=== PATIENT | female | born 1990 | race Caucasian/White ===

== ENCOUNTER 2018-07-11 08:05 | Emergency (ER) | payer OTHER ==
--- NOTE | 2018-07-11 08:19 | PDOC ---
History of Present Illness - General Chief Complaint: Nausea/Vomiting Stated Complaint: NAUSEA,VOMITING Time Seen by Provider: 07/11/18 08:15 - History of Present Illness Initial Comments: 07/11/18 08:18 Patient denies N/V, F,C, CP, SOB, urinary complaints, abdominal pain, diarrhea, constipation, lightheadedness, weakness, sensory changes. PMHx: as noted above ROS: as noted SHx: Allergies: Past History - Past Medical History Allergies/Adverse Reactions: Allergies Allergy/AdvReac Type Severity Reaction Status Date / Time Penicillins Allergy Verified 07/11/18 08:10 Home Medications: Ambulatory Orders 95/Iron Fum/Folic/Dha [ + Dha Combo Pack] 1 each PO DAILY 07/11 COPD: No - Immunization History Immunization Up to Date: Yes - Suicide/Smoking/Psychosocial Hx Smoking History: Former smoker Have you smoked in the past 12 months: No Information on smoking cessation initiated: No Hx Alcohol Use: No Drug/Substance Use Hx: No Review of Systems - Review of Systems Comments:: 07/11/18 08:18 GENERAL/CONSTITUTIONAL: No fever or chills. No weakness. HEAD, EYES, EARS, NOSE AND THROAT: No change in vision. No ear pain or discharge. No sore throat. CARDIOVASCULAR: No chest pain or shortness of breath RESPIRATORY: No cough, wheezing, or hemoptysis. GASTROINTESTINAL: No nausea, vomiting, diarrhea or constipation. GENITOURINARY: No dysuria, frequency, or change in urination. MUSCULOSKELETAL: No joint or muscle swelling or pain. No neck or back pain. SKIN: No rash NEUROLOGIC: No headache, vertigo, loss of consciousness, or change in strength/ sensation. ENDOCRINE: No increased thirst. No abnormal weight change HEMATOLOGIC/LYMPHATIC: No anemia, easy bleeding, or history of blood clots. ALLERGIC/IMMUNOLOGIC: No hives or skin allergy. *Physical Exam - Vital Signs Last Vital Signs Temp Pulse Resp BP Pulse Ox 98.8 F 105 H 18 108/76 99 07/11/18 08:10 07/11/18 08:10 07/11/18 08:10 07/11/18 08:10 07/11/18 08:10 - Physical Exam Comments: 07/11/18 08:18 GENERAL: Awake, alert, and fully oriented, in no acute distress HEAD: No signs of trauma, normocephalic, atraumatic EYES: PERRLA, EOMI, sclera anicteric, conjunctiva clear ENT: Auricles normal inspection, hearing grossly normal, nares patent, oropharynx clear without exudates. Moist mucosa NECK: Normal ROM, supple, no lymphadenopathy, JVD, or masses LUNGS: No distress, speaks full sentences, clear to auscultation bilaterally HEART: Regular rate and rhythm, normal S1 and S2, no murmurs, rubs or gallops, peripheral pulses normal and equal bilaterally. ABDOMEN: Soft, nontender, normoactive bowel sounds. No guarding, no rebound. No masses EXTREMITIES : Normal inspection, Normal range of motion, no edema. No clubbing or cyanosis. NEUROLOGICAL: Cranial nerves II through XII grossly intact. Normal speech, normal gait, no focal sensorimotor deficits SKIN: Warm, Dry, normal turgor, no rashes or lesions noted Moderate Sedation - Procedure Monitoring Vital Signs: Procedure Monitoring Vital Signs Temperature 98.8 F 07/11/18 08:10 Pulse Rate 105 H 07/11/18 08:10 Respiratory Rate 18 07/11/18 08:10 Blood Pressure 108/76 07/11/18 08:10 O2 Sat by Pulse Oximetry (%) 99 07/11/18 08:10 *DC/Admit/Observation/Transfer - Discharge Dispostion Condition at time of disposition: Stable Decision to Admit order: No - Referrals Referrals: Hector Alvarado MD [Primary Care Provider] - - Patient Instructions Printed Discharge Instructions: DI for Nausea -- Adult Additional Instructions: Please return to the emergency department with any new or worsening symptoms or concerns. Please follow up with your primary care physician within 72 hours. - Post Discharge Activity - Attestations Physician Attestion: 07/11/18 08:18 I attest to the information provided in this note.
[2018-07-11] MEDS ORDERED: FAMOTIDINE 20 MG/50 ML IVPB 20 MG/50 ML MG IVPB ONE ×2 (08:30→09:21)
[2018-07-11] MEDS ORDERED: SODIUM CHLORIDE 1,000 ML IV ONE (08:30)
[2018-07-11] MEDS ORDERED: METOCLOPRAMIDE HCL INJECTION 10 MG/2 ML VIAL IVPB ONE (08:30)
[2018-07-11] MEDS ORDERED: METOCLOPRAMIDE HCL INJECTION 10 MG/2 ML VIAL ONE (08:35)
[2018-07-11 08:36] VITALS: BMI 34.3
[2018-07-11 08:43] LABS: BASO % 0.1 % (0-2.0); EOS % 0.3 % (0-4.5); HEMOGLOBIN 14.2 GM/dL (10.7-15.3); LYMPH % 3.3 % (8-40); MCH 31.2 pg (25.7-33.7); MCHC 35.4 g/dl (32.0-36.0); MEAN CELL VOLUME 88.1 fl (80-96); MEAN PLT VOLUME 8.4 fl (7.5-11.1); MONO % 2.6 % (3.8-10.2); NEUT % 93.7 % (42.8-82.8); PLATELET COUNT 252 K/MM3 (134-434); RBC 4.54 M/mm3 (3.60-5.2); RDW 12.8 % (11.6-15.6); WHITE BLOOD COUNT 14.3 K/mm3 (4.0-10.0)
--- NOTE | 2018-07-11 09:08 | PDOC ---
History of Present Illness - General Chief Complaint: Nausea/Vomiting Stated Complaint: NAUSEA,VOMITING Time Seen by Provider: 07/11/18 08:15 History Source: Patient Exam Limitations: No Limitations - History of Present Illness Initial Comments: 07/11/18 09:01 Healthy 27-year-old female with no significant past medical history currently at 10 weeks gestation of thus far uncomplicated presents now with nausea/vomiting/diarrhea since 1 AM. Patient was in her usual state of good health, awoke around 1 AM when onset of nonbloody nonbilious vomiting 6-7 episodes with multiple episodes of nonbloody diarrhea. Initially intermittent abdominal discomfort now with more persistent epigastric discomfort and held cramping without bleeding or discharge, presents for evaluation. 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 Past History - Past Medical History Allergies/Adverse Reactions: Allergies Allergy/AdvReac Type Severity Reaction Status Date / Time Penicillins Allergy Verified 07/11/18 08:10 Home Medications: Ambulatory Orders 95/Iron Fum/Folic/Dha [ + Dha Combo Pack] 1 each PO DAILY 07/11 COPD: No - Immunization History Immunization Up to Date: Yes - Suicide/Smoking/Psychosocial Hx Smoking History: Former smoker Have you smoked in the past 12 months: No Information on smoking cessation initiated: No Hx Alcohol Use: No Drug/Substance Use Hx: No Review of Systems - Review of Systems Constitutional: Yes: Chills. No: Fever HEENTM: No: Nose Congestion, Throat Pain Respiratory: No: Cough, Shortness of Breath Cardiac (ROS): No: Chest Pain, Syncope ABD/GI: Yes: See HPI : No: Burning, Dysuria, Hematuria Neurological: Yes: Headache All Other Systems: Reviewed and Negative *Physical Exam - Vital Signs Last Vital Signs Temp Pulse Resp BP Pulse Ox 98.8 F 105 H 18 108/76 99 07/11/18 08:10 07/11/18 08:10 07/11/18 08:10 07/11/18 08:10 07/11/18 08:10 - Physical Exam Comments: 07/11/18 09:03 afebrile here, O2 sat normal, blood pressure normal, slight tachycardia at triage now resolved while seated in stretcher GENERAL: The patient is awake, alert, and fully oriented, in no acute distress ambulating comfortably and speaking full sentences. HEAD: Normal with no signs of trauma. EYES: PERRL, EOMI, no jaundice/pallor. ENT: oropharynx clear without exudates. Moist mucous membranes. NECK: Normal range of motion, supple without lymphadenopathy, JVD, or masses. LUNGS: Breath sounds equal, clear to auscultation bilaterally. No wheeze/ crackles. HEART: Regular rate and rhythm, normal S1 and S2 without murmur or rub. ABDOMEN: Soft/nondistended. BS wnl. Epigastric > RUQ discomfort to palpation without guarding or rebound. Suprapubic pressure to palpation but no guarding/ rebound. No palpable masses. No hepatosplenomegaly. EXTREMITIES: Normal range of motion. 2+ distal pulses. NEUROLOGICAL: Cranial nerves II through XII grossly intact. Normal speech, normal gait. PSYCH: Normal mood, normal affect. SKIN: Warm, Dry, no rashes or lesions noted. Moderate Sedation - Procedure Monitoring Vital Signs: Procedure Monitoring Vital Signs Temperature 98.8 F 07/11/18 08:10 Pulse Rate 105 H 07/11/18 08:10 Respiratory Rate 18 07/11/18 08:10 Blood Pressure 108/76 07/11/18 08:10 O2 Sat by Pulse Oximetry (%) 99 07/11/18 08:10 ED Treatment Course - LABORATORY CBC & Chemistry Diagram: 07/11/18 08:35 07/11/18 08:35 - ADDITIONAL ORDERS Additional order review: 07/11/18 08:35 RBC 4.54 MCV 88.1 MCHC 35.4 RDW 12.8 MPV 8.4 Neutrophils % 93.7 H Lymphocytes % 3.3 L Monocytes % 2.6 L Eosinophils % 0.3 Basophils % 0.1 - RADIOLOGY Radiology Studies Ordered: Category Date Time Status GALLBLADDER US [US] Stat Ultrasound 07/11/18 08:30 Ordered LIMITED US [US] Stat Ultrasound 07/11/18 08:30 Ordered Medical Decision Making - Medical Decision Making 07/11/18 09:08 Healthy 27-year-old female first trimester presents with nausea/ vomiting/diarrhea that began abruptly at 1 AM, associated with abdominal discomfort localizing to the epigastric region, no peritoneal findings. Pelvic cramping without discharge or bleeding, otherwise well-appearing and hemodynamically stable. Vomiting/diarrhea likely of viral etiology, rule out biliary etiology. Lower abdominal cramping without bleeding. labs, ua ruq us, us ivf, anti-emetic, antacid reassess 07/11/18 09:22 White count 14.3 with slight neutrophilia, chemistries are within normal limits including lipase, influenza negative. Ultrasounds pending, pelvic cramping has resolved, no further vomiting or diarrhea at this time. 07/11/18 10:27 GB sono wnl, sono wnl with FH 167. UA clear, 10 rbc Pt had another episode of diarrhea/vomiting after drinking powerade ( complicated by self-limited epistaxis), no persistent sxs. trial of zofran, PO trial, dispo 07/11/18 11:14 feels much better after zofran, tolerating PO. no further v/d, abd remains benign. has zofran at home (will confirm with OB), understands return criteria. *DC/Admit/Observation/Transfer Diagnosis at time of Disposition: Nausea vomiting and diarrhea, First trimester - Discharge Dispostion Disposition: HOME Condition at time of disposition: Improved - Referrals Referrals: Hector Alvarado MD [Primary Care Provider] - Gagan Moura MD [Staff Physician] - - Patient Instructions Printed Discharge Instructions: DI for Nausea -- Adult Additional Instructions: Activity as tolerated. Stay hydrated. Advance diet as tolerated, avoiding dairy , spicy or fatty foods, caffeine and alcohol. If stomach burning persists, consider Pepcid 20 mg twice daily for 5-7 days. Take Zofran as previously prescribed as needed for any persistent nausea. 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 Continue your vitamins as previously prescribed by your physician. You should follow up with your primary doctor and [employer]ING [employer] as soon as possible regarding today's emergency department visit. Return to the emergency department for any new or concerning symptoms, particularly persistent vomiting/diarrhea or dehydration, persistent abdominal pain, lightheadedness, cramping or bleeding or discharge. - Post Discharge Activity Forms/Work/School Notes: Back to Work
[2018-07-11 09:18] LABS: ALBUMIN 3.6 g/dl (3.4-5.0); ALK PHOS 62 U/L (45-117); ANION GAP 9 MMOL/L (8-16); BILIRUBIN,TOTAL 0.6 mg/dL (0.2-1); BLOOD UREA NITROGEN 7 mg/dL (7-18); CALCIUM 8.7 mg/dL (8.5-10.1); CHLORIDE 105 mmol/L (98-107); CO2 24 mmol/L (21-32); CREATININE 0.6 mg/dL (0.55-1.3); GLUCOSE,RANDOM 97 mg/dL (74-106); LIPASE 125 U/L (73-393); POTASSIUM 3.7 mmol/L (3.5-5.1); SGOT/AST 9 U/L (15-37); SGPT/ALT 24 U/L (13-61); SODIUM 137 mmol/L (136-145)
[2018-07-11 09:59] LABS: URINE APPEARANCE CLEAR; URINE BILIRUBIN NEGATIVE (<2.0 mg/dL); URINE COLOR YELLOW; URINE GLUCOSE (UA) NEGATIVE (NEGATIVE); URINE KETONE NEGATIVE (NEGATIVE); URINE LEUK ESTERASE NEGATIVE (NEGATIVE); URINE NITRITE NEGATIVE (NEGATIVE); URINE PROTEIN NEGATIVE (NEGATIVE); URINE UROBILINOGEN NEGATIVE mg/dL (0.2-1.0)
[2018-07-11 10:05] LABS: EPI CELLS RARE /HPF (FEW); URINE BACTERIA RARE /hpf (NONE SEEN); URINE MUCUS FEW
[2018-07-11] MEDS ORDERED: ONDANSETRON 4 MG/2 ML VIAL IVPUSH ONE (10:26)
[2018-07-11] MEDS ORDERED: ONDANSETRON 4 MG/2 ML VIAL ONE (10:42)
[2018-07-11 11:28] VITALS: BP 97/65; PULSE 100; TEMP 98.5
[2018-07-11 12:30] LABS: PLATELET ESTIMATE ADEQUATE
== END 2018-07-11 11:28 | disposition home or self-care (01) ==
LOC: JER 08:05
PROC: 3E033GC Introduction of Other Therapeutic Substance into Peripheral Vein, Percutaneous Approach (ICD-10-PCS; principal; 2018-07-11)
PROC: 3E033GC Introduction of Other Therapeutic Substance into Peripheral Vein, Percutaneous Approach (ICD-10-PCS; 2018-07-11)
PROC: 3E033GC Introduction of Other Therapeutic Substance into Peripheral Vein, Percutaneous Approach (ICD-10-PCS; 2018-07-11)
DX: O26.891 Other specified pregnancy related conditions, first trimester (principal); O98.511 Other viral diseases complicating pregnancy, first trimester; B34.9 Viral infection, unspecified; Z3A.10 10 weeks gestation of pregnancy
CPT/HCPCS: 36415; 76705-TC; 76815-TC; 80053; 81003; 81015; 83690; 85025; 87804; 99282-25; J7030

== ENCOUNTER 2019-02-08 17:00 | Inpatient (IN) | payer OTHER ==
[2019-02-08 17:58] VITALS: BMI 39.1
[2019-02-08] MEDS ORDERED: DINOPROSTONE 10 MG VAGINAL SUPPOSITORY VG ONE (17:58)
--- NOTE | 2019-02-08 20:11 | HP ---
Past Medical History - Primary Care Physician PCP:: Gagan Moura - Admission Chief Complaint: 40 weeks, for cervidil induction History of Present Illness: 28 yo f 40 weeks, requesting induction of labor , risks has explained to patient, ulternatives has discussed with patient , cx closed,0 effacement , vx -3 mi, fhr cat 1, no contraction History Source: Patient Limitations to Obtaining History: No Limitations - Past Medical History ...: 2 ...Para: 0 ...Term: 0 ...: 0 ...Spon : 0 ...Induced : 1 ...Multiple Gestation: 0 ...LMP: 05/04/08 ... Weeks Gestation by Dates: 40 ...EDC by Dates: 02/08/19 ...EDC by Sono: 02/08/19 - Past Surgical History Hx Myomectomy: No Hx Transabdominal Cerclage: No - Smoking History Smoking history: Never smoked Have you smoked in the past 12 months: No - Alcohol/Substance Use Hx Alcohol Use: No History of Substance Use: reports: None - Social History Usual Living Arrangement: Yes: With Spouse History of Recent Travel: No Home Medications - Allergies Allergies/Adverse Reactions: Allergies Allergy/AdvReac Type Severity Reaction Status Date / Time Penicillins Allergy Severe Difficulty Verified 02/08/19 17:20 Breathing - Home Medications Home Medications: Ambulatory Orders 95/Iron Fum/Folic/Dha [ + Dha Combo Pack] 1 each PO DAILY 07/11 Acetaminophen [Tylenol] 650 mg PO PRN PRN 01/31/19 Famotidine [Pepcid] 20 mg PO BID 01/31/19 Review of Systems - Review of Systems Constitutional: reports: No Symptoms Eyes: reports: No Symptoms HENT: reports: No Symptoms Neck: reports: No Symptoms Cardiovascular: reports: No Symptoms Respiratory: reports: No Symptoms Gastrointestinal: reports: No Symptoms Genitourinary: reports: No Symptoms Breasts: reports: No Symptoms Reported Musculoskeletal: reports: No Symptoms Integumentary: reports: No Symptoms Neurological: reports: No Symptoms Endocrine: reports: No Symptoms Hematology/Lymphatic: reports: No Symptoms Psychiatric: reports: No Symptoms Physical Exam - Maternity Vital Signs: Vital Signs Temperature 97.7 F 02/08/19 17:32 Pulse Rate 89 02/08/19 19:00 Respiratory Rate 20 02/08/19 19:00 Blood Pressure 108/63 02/08/19 19:00 O2 Sat by Pulse Oximetry (%) Constitutional: Yes: Well Nourished, No Distress, Calm, Obese Eyes: Yes: WNL, Conjunctiva Clear, EOM Intact HENT: Yes: WNL, Atraumatic, Normocephalic Neck: Yes: WNL, Supple, Trachea Midline Cardiovascular: Yes: WNL, Regular Rate and Rhythm Breast(s): Yes: WNL - Abdominal Exam/OB Fundal Height: 40 Number of Fetuses: Single Presentation: Vertex Contractions: No Intensity: Unaware Monitor Mode: External Heart Rate Location: [facility] Category: I Accelerations: Uniform - Vaginal Exam/OB Vaginal Bleediing: No Speculum Exam: No Dilatation (cm): closed Effacement (%): 0 Amniotic Membrane Status: Intact Presentation: Vertex/Position Station: -3 - Physical Exam Musculoskeletal: Yes: WNL Extremities: Yes: Deformity Edema: Yes Edema: LLE: 1+, RLE: 1+ Deep Tendon Reflex Grade: Normal +2 ...Motor Strength: WNL Psychiatric: Yes: WNL Hemorrhage Risk Assessment - Risk Factors Medium Risk Factors: Yes: Obesity (BMI >40) Risk Score: 1 Risk Level: Medium Risk Problem List - Problems (1) Post term over 40 weeks Code(s): O48.0 - POST-TERM Assessment/Plan cervidil induction
[2019-02-08 20:52] LABS: BASO % 0.2 % (0-2.0); EOS % 1.1 % (0-4.5); HEMATOCRIT 37.1 % (32.4-45.2); HEMOGLOBIN 12.2 GM/dL (10.7-15.3); LYMPH % 20.4 % (8-40); MCH 28.9 pg (25.7-33.7); MCHC 32.9 g/dl (32.0-36.0); MEAN CELL VOLUME 87.7 fl (80-96); MEAN PLT VOLUME 9.4 fl (7.5-11.1); MONO % 5.5 % (3.8-10.2); NEUT % 72.8 % (42.8-82.8); PLATELET COUNT 232 K/MM3 (134-434); RBC 4.23 M/mm3 (3.60-5.2); RDW 14.2 % (11.6-15.6); WHITE BLOOD COUNT 10.7 K/mm3 (4.0-10.0)
[2019-02-08 21:07] LABS: PROTHROMBIN TIME (PATIENT) 11.8 SEC (9.7-13.0)
[2019-02-08 21:10] LABS: ACTIVATED PTT 29.5 SECONDS (25.2-36.5)
[2019-02-08 21:15] LABS: BLOOD UREA NITROGEN 7.6 mg/dL (7-18); CALCIUM 8.9 mg/dL (8.5-10.1); CREATININE 0.5 mg/dL (0.55-1.3); POTASSIUM 3.7 mmol/L (3.5-5.1)
[2019-02-08] MEDS ORDERED: PROMETHAZINE HCL 25 MG/1 ML VIAL IVPUSH ONE (22:23)
[2019-02-08] MEDS ORDERED: BUTORPHANOL TARTRATE 1 MG/ML VIAL IVPUSH ONE (22:23)
[2019-02-09] MEDS: DEXTROSE 5%-LACTATED RINGERS 1,000 ML IV SCH ×2 (07:45→14:00)
[2019-02-09] MEDS ORDERED: OXYTOCIN 30 UNITS in 0.9% NS 30 UNIT/500 ML INFUS.BAG IVPB SCH (08:00)
--- NOTE | 2019-02-09 13:57 | PN ---
Progress Note (short form) - Note Progress Note: had SROM at 9 am today, clear fluid , cx 2 cm 50 vx -3 mr, fhr cat 1, regular contraction plan cont, induction Problem List - Problems (1) Post term over 40 weeks Code(s): O48.0 - POST-TERM
[2019-02-09] MEDS ORDERED: BUTORPHANOL TARTRATE 1 MG/ML VIAL ONE ×2 (14:49)
[2019-02-09] MEDS ORDERED: PROMETHAZINE HCL 25 MG/1 ML VIAL ONE (14:49)
[2019-02-09] MEDS ORDERED: FENTANYL/BUPIVACAINE/NS/PF - PCEA - 50 ML DISP.SYRIN EP ONE (17:37)
[2019-02-09] MEDS ORDERED: NALOXONE HCL 0.4 MG/ML VIAL IVPUSH PRN (18:33)
[2019-02-09] MEDS ORDERED: LIDO 2%/EPI 1:200000 PRESRVFRE (20 ML SDVIAL) ONE (18:36)
[2019-02-09] MEDS ORDERED: BUPIVACAINE HCL/PF 2.5 MG/ML - 30 ML VIAL IJ ONE (18:36)
[2019-02-09] MEDS ORDERED: FENTANYL/BUPIVACAINE/NS/PF - PCEA - 50 ML DISP.SYRIN EP SCH (18:45)
--- NOTE | 2019-02-09 19:06 | PN ---
Progress Note (short form) - Note Progress Note: cx 2 cm, 70 vx -3 mr, fhr cat 1, regular contraction, declined pitocin to be continue , requesting to have c/s , risks discussed Problem List - Problems (1) Post term over 40 weeks Code(s): O48.0 - POST-TERM
[2019-02-09] MEDS ORDERED: CITRIC ACID/SODIUM CITRATE 30 ML UNIT-DOSE CUP PO ONE (19:07)
[2019-02-09] MEDS ORDERED: ELECTROLYTE-148 SOLN 1,000 ML IV SCH (19:15)
[2019-02-09] MEDS ORDERED: morphine SULFATE/PF 0.5 MG/ML (2cc Syringe - QUVA) ONE (19:28)
[2019-02-09] MEDS ORDERED: ceFAZolin SODIUM 1 GM VIAL ONE (19:29)
[2019-02-09] MEDS ORDERED: oxyCODONE HCL 5 MG TABLET PO PRN ×2 (19:39)
[2019-02-09] MEDS ORDERED: METHYLERGONOVINE MALEATE 0.2 MG/1 ML AMP IM PRN (19:39)
[2019-02-09] MEDS ORDERED: WITCH HAZEL 50% (TUCKS) 40 PAD/JAR PAD TP PRN (19:39)
[2019-02-09] MEDS ORDERED: BENZOCAINE 28 GM HEMORRHOIDAL OINTMENT PR PRN (19:39)
[2019-02-09] MEDS ORDERED: diphenhydrAMINE HCL 25 MG CAPSULE (FP) PO PRN (19:39)
[2019-02-09] MEDS ORDERED: BENZOCAINE 20% 57 GM BOTTLE TP PRN (19:39)
[2019-02-09] MEDS ORDERED: ePHEDrine SULFATE 50 MG/1 ML AMPULE ONE (19:45)
[2019-02-09] MEDS ORDERED: DEXTROSE 5%-LACTATED RINGERS 1,000 ML IV SCH (19:45)
[2019-02-09] MEDS ORDERED: OXYTOCIN 20 UNITS in 0.9% NS 20 UNIT/1,000 ML INFUS.BAG IV SCH (19:45)
[2019-02-09] MEDS ORDERED: OXYTOCIN 10 UNITS/ML VIAL ONE (19:56)
[2019-02-09] MEDS ORDERED: morphine SULFATE/PF 0.5 MG/ML (2cc Syringe - QUVA) EP ONE (20:38)
[2019-02-09] MEDS ORDERED: ONDANSETRON 4 MG/2 ML VIAL IVPUSH PRN (20:38)
[2019-02-09] MEDS ORDERED: OXYTOCIN 20 UNITS in 0.9% NS 20 UNIT/1,000 ML INFUS.BAG IV ONE (22:13)
[2019-02-09] MEDS: IBUPROFEN 800 MG/8 ML IJ IVPB PRN (23:40)
[2019-02-10] MEDS ORDERED: CEFAZOLIN 1 GM/D5W 50 ML IVPB SCH (02:00)
[2019-02-10] MEDS: CLINDAMYCIN 900 MG PREMIX IVPB 900 MG/50 ML BAG IVPB SCH ×3 (02:22→19:04)
--- NOTE | 2019-02-10 07:32 | OP ---
Operative Note - Note: Operative Date: 02/09/19 Pre-Operative Diagnosis: 40 weeks, induction, failure to dilate Operation: primary LST c/s Findings: live baby boy 9 ROT , cord around neck once Surgeon: Gagan Moura Consultant Technology: Dominguez Saavedra Anesthesiologist/TOOL ANALYST: Sujit Underwood Anesthesia: Spinal Specimens Removed: placenta Estimated Blood Loss (mls): 500 Blood Volume Replaced (mls): 0 Operative Report Dictated: Yes
--- NOTE | 2019-02-10 07:39 | PN ---
Progress Note (short form) - Note Progress Note: pod 1 s/p c/s , has mild low abdominal discomfort CBC, BMP 02/08/19 19:25 Last Vital Signs Temp Pulse Resp BP Pulse Ox 98.3 F 90 20 98/50 L 98 02/10/19 06:00 02/10/19 06:00 02/10/19 06:00 02/10/19 06:00 02/09/19 22:00 abdomen soft, no distension, no cva incision dry, clean uterus firm lochia mild no calf tenderness plan ambulate, cbc advance diet pain management Problem List - Problems (1) Post term over 40 weeks Code(s): O48.0 - POST-TERM
[2019-02-10 07:49] LABS: BASO % 0.2 % (0-2.0); EOS % 0.4 % (0-4.5); HEMATOCRIT 33.5 % (32.4-45.2); HEMOGLOBIN 11.2 GM/dL (10.7-15.3); LYMPH % 16.2 % (8-40); MCH 29.2 pg (25.7-33.7); MCHC 33.4 g/dl (32.0-36.0); MEAN CELL VOLUME 87.3 fl (80-96); MEAN PLT VOLUME 8.9 fl (7.5-11.1); MONO % 7.2 % (3.8-10.2); PLATELET COUNT 212 K/MM3 (134-434); RBC 3.84 M/mm3 (3.60-5.2); RDW 14.2 % (11.6-15.6)
[2019-02-10] MEDS: IBUPROFEN 800 MG/8 ML IJ IVPB PRN ×2 (07:55→17:05)
--- NOTE | 2019-02-10 10:21 | OP ---
DATE OF OPERATION: 02/09/2019 PREOPERATIVE DIAGNOSIS: 40 weeks, Cervidil induction, failure to dilate. POSTOPERATIVE DIAGNOSIS: 40 weeks, Cervidil induction, failure to dilate. PROCEDURE: Primary low segment transverse section. SURGEON: Mo Moura MD ANESTHESIA: Spinal anesthesia, Sujit Underwood MD. SURVEYING TECHNICIAN: ARNOLDO Cifuentes ESTIMATED BLOOD LOSS: 500 mL. FINDINGS: A live baby boy, Apgars 9, 9. ROT position and cord around the neck x1. DESCRIPTION OF PROCEDURE: Patient was taken to operating room, had adequate spinal anesthesia. Abdomen and perineum were prepped and draped. A Pfannenstiel abdominal skin incision was made. Abdominal wall was cut layer by layer until peritoneum was exposed and incised. Upon entering the abdominal cavity, lower uterine segment was identified and uterovesical fold of peritoneum was established. Bladder was pushed down. Then with the lower blade of the Sharon retractor in the pelvis, a low transverse incision was made, incision extended laterally. Amniotic sac was entered. Clear fluid. Head delivered from right occiput transverse position, cord around the neck x1 reduced. Anterior and posterior shoulders delivered without any difficulty. Live baby boy was delivered, Apgars 9, 9. Placenta was delivered manually. Uterine cavity was cleared of all remaining tissue. Uterine incision was closed in 2 layers, the first layer with 0 Vicryl continuous suture, the second layer with 0 Biosyn imbricating the first layer. Bladder flap was closed with 0 Biosyn continuous suture. Both tubes and ovaries were checked, were normal. No active bleeding was seen. All the lap pads, sponge, and instrument counts were correct, and peritoneum was closed with 0 Biosyn continuous suture. Muscles were brought together with interrupted suture of 0 Biosyn, and fascia was closed with 0 Biosyn continuous suture, subcutaneous fat interrupted sutures of 0 Biosyn, and the skin was closed with 4-0 Biosyn subcuticular continuous suture. Patient tolerated the procedure well, left the OR in good condition. MO MOURA M.D. [id number]
[2019-02-10] MEDS: ENOXAPARIN NA (PORCINE) 40 MG/0.4 ML DISP.SYRIN SQ SCH (10:58)
--- NOTE | 2019-02-10 11:17 | PN ---
Progress Note (short form) - Note Progress Note: Anesthesiology Post-op 28 y.o. woman POD#1 s/p C/S under spinal anesthesia. She has no complaints and is sitting comfortably in bed. She is able to walk and denies h/a or n/v/pruritus. VSS. 28 y.o. woman with stable post-operative course. Continue management as per primary team.
[2019-02-10] MEDS ORDERED: BISACODYL 10 MG SUPP.RECT PR PRN (19:40)
[2019-02-10] MEDS: IBUPROFEN 600 MG TABLET (FP) PO PRN (23:55)
--- NOTE | 2019-02-11 05:21 | PN ---
Post Progress Note - Subjective Subjective: Patient without acute complaints. Reports tolerating oral intake without nausea or vomiting. Ambulating without dizziness. Denies fevers or chills. Pain well controlled with oral pain medication. without difficulty. Passing flatus. Post Day: 2 Type of Delivery: Primary C/S Vital Signs: Vital Signs Temperature 97.9 F 02/10/19 22:00 Pulse Rate 71 02/10/19 22:00 Respiratory Rate 18 02/10/19 22:00 Blood Pressure 120/67 02/10/19 22:00 O2 Sat by Pulse Oximetry (%) 98 02/09/19 22:00 Breast Exam: Yes: Soft Uterus: Yes: Fundus Firm, Fundus below umbilicus Incision: Yes: Sutures intact. No: Redness, Oozing Abdomen/GI: Yes: Abdomen soft, Tender (mild incisional). No: Abdominal Distention Lochia: Yes: Rubra Lochia, amount: Small Extremities: Yes: Calves non-tender, Edema (trace) Activity: Ambulating - Labs Labs: CBC WBC 13.0 K/mm3 (4.0-10.0) H 02/10/19 07:00 RBC 3.84 M/mm3 (3.60-5.2) 02/10/19 07:00 Hgb 11.2 GM/dL (10.7-15.3) 02/10/19 07:00 Hct 33.5 % (32.4-45.2) 02/10/19 07:00 MCV 87.3 fl (80-96) 02/10/19 07:00 MCH 29.2 pg (25.7-33.7) 02/10/19 07:00 MCHC 33.4 g/dl (32.0-36.0) 02/10/19 07:00 RDW 14.2 % (11.6-15.6) 02/10/19 07:00 Plt Count 212 K/MM3 (134-434) 02/10/19 07:00 MPV 8.9 fl (7.5-11.1) 02/10/19 07:00 Absolute Neuts (auto) 9.9 K/mm3 (1.5-8.0) H 02/10/19 07:00 Neutrophils % 76.0 % (42.8-82.8) 02/10/19 07:00 Lymphocytes % 16.2 % (8-40) D 02/10/19 07:00 Monocytes % 7.2 % (3.8-10.2) 02/10/19 07:00 Eosinophils % 0.4 % (0-4.5) 02/10/19 07:00 Basophils % 0.2 % (0-2.0) 02/10/19 07:00 Nucleated RBC % 0 % (0-0) 02/10/19 07:00 Assessment/Plan 28 yo POD # 2 s/p primary CD for failed induction of labor, afebrile, vital signs stable, doing well 1. Continue routine postoperative care. 2. Encourage ambulation and incentive spirometer use 3. Continue oral pain medication 4. Anticipate discharge home postoperative day #3 or #4
[2019-02-11] MEDS: IBUPROFEN 600 MG TABLET (FP) PO PRN ×3 (05:37→21:34)
[2019-02-11] MEDS: ENOXAPARIN NA (PORCINE) 40 MG/0.4 ML DISP.SYRIN SQ SCH (09:18)
[2019-02-11] MEDS: SIMETHICONE 80 MG TAB.CHEW (FP) PO PRN ×2 (18:36→21:35)
[2019-02-11] MEDS ORDERED: SENNOSIDES/DOCUSATE COMBO (SENNA PLUS) TABLET (UD) PO PRN (22:00)
--- NOTE | 2019-02-11 23:01 | PN ---
Progress Note (short form) - Note Progress Note: Patient states desires circumcision for . Discussed risks including infection, bleeding, damage to tip of penis, and unsatisfactory result, resulting in surgical repair or repeat circumcision. Patient expressed understanding and consents to procedure. Reviewed infants chart, cleared for circumcision and normal genitalia per chef head, Dr. Marquez
[2019-02-12] MEDS: IBUPROFEN 600 MG TABLET (FP) PO PRN ×2 (01:08→05:43)
[2019-02-12] MEDS: SIMETHICONE 80 MG TAB.CHEW (FP) PO PRN (05:43)
--- NOTE | 2019-02-12 07:07 | PN ---
Post Progress Note - Subjective Subjective: Patient without acute complaints. Reports tolerating oral intake without nausea or vomiting. Ambulating without dizziness. Denies fevers or chills. Pain well controlled with oral pain medication. without difficulty. Passing flatus. Post Day: 3 Type of Delivery: Primary C/S Vital Signs: Vital Signs Temperature 98.3 F 02/11/19 21:07 Pulse Rate 85 02/11/19 21:07 Respiratory Rate 20 02/11/19 21:07 Blood Pressure 106/66 02/11/19 21:07 O2 Sat by Pulse Oximetry (%) 98 02/09/19 22:00 Breast Exam: Yes: Engorged Uterus: Yes: Fundus Firm, Fundus below umbilicus Incision: Yes: Sutures intact. No: Redness, Oozing Abdomen/GI: Yes: Abdomen soft, Tender (mmild incisional), Passing flatus, Tolerating PO. No: Abdominal Distention Lochia: Yes: Serosa Lochia, amount: Small Extremities: Yes: Calves non-tender, Edema (trace) Activity: Ambulating - Labs Labs: CBC WBC 13.0 K/mm3 (4.0-10.0) H 02/10/19 07:00 RBC 3.84 M/mm3 (3.60-5.2) 02/10/19 07:00 Hgb 11.2 GM/dL (10.7-15.3) 02/10/19 07:00 Hct 33.5 % (32.4-45.2) 02/10/19 07:00 MCV 87.3 fl (80-96) 02/10/19 07:00 MCH 29.2 pg (25.7-33.7) 02/10/19 07:00 MCHC 33.4 g/dl (32.0-36.0) 02/10/19 07:00 RDW 14.2 % (11.6-15.6) 02/10/19 07:00 Plt Count 212 K/MM3 (134-434) 02/10/19 07:00 MPV 8.9 fl (7.5-11.1) 02/10/19 07:00 Absolute Neuts (auto) 9.9 K/mm3 (1.5-8.0) H 02/10/19 07:00 Neutrophils % 76.0 % (42.8-82.8) 02/10/19 07:00 Lymphocytes % 16.2 % (8-40) D 02/10/19 07:00 Monocytes % 7.2 % (3.8-10.2) 02/10/19 07:00 Eosinophils % 0.4 % (0-4.5) 02/10/19 07:00 Basophils % 0.2 % (0-2.0) 02/10/19 07:00 Nucleated RBC % 0 % (0-0) 02/10/19 07:00 Assessment/Plan 28 yo POD # 3 s/p primary CD for failed induction of labor, afebrile, vital signs stable, doing well 1. Patient stable for discharge home today. 2. Patient encouraged to contact MD for: - Severe pain not controlled by oral pain medication - Fevers or chills - Nausea or vomiting, intolerance of oral intake - Incision redness, tenderness or discharge 3. Patient to follow up in office in 1-2 weeks for incision check, 4-6 weeks for visit
--- NOTE | 2019-02-12 07:12 | DS ---
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 Present: Yes Name: Stefani Capellan Infant Gender: Male Weight: 7 lb 8 oz Position: Left, OA Total Hours ROM (Hrs/Mins): 11h 2m - 1 Minute Total Score: 8 5 Minutes Total Score: 9 - Feeding Plan Initial Plan: Exclusive throughout hospitalization Discharge Summary Reason For Visit: INDUCTION OF LABOR Current Active Problems Post term over 40 weeks (Acute) Procedures: Principal: Delivery Hospital Course: Patient was admitted for postdates induction of labor She did not progress, underwent a primary delivery for failure to dilate POD # 1 patient ambulated, voiding, passing gas, tolerating oral intake and with adequate pain control. Noted to have mild asymptomatic anemia She fulfilled all criteria for discharge POD #3 Condition: Good - Instructions Diet, Activity, Other Instructions: Return to office in 1-2 weeks for incision check Physical activity Resume your normal everyday activity as tolerated no heavy lifting or exercise until seen by your surgeon. You may walk unlimited anita of and climb stairs. You may resume driving the car when you feel safe and comfortable behind the wheel. No sexual activity as instructed. Wound care If you have a bandage, leave it on, and keep dry for 48-72 hours. After that time discard the outer bandage. If they are tapes on the skin under the out of bandage leave them in place. They will peel off in the next 7 to 10 days. Do Not Peel them off. You may shower the day after surgery. If there are tapes present on the skin, you may shower over them. Diet There are no dietary restrictions. Eat healthy, high-fiber foods. Drink 6 to 8 glasses of liquid each day. This will assist in keeping your bowels are regular. Pain management You may take Tylenol or acetaminophen or Ibuprofen (for example, Motrin, Advil etc.) for pain. Any prescription medication is ordered should be taken as prescribed for moderate to severe pain. Call MD for any of the following: Severe pain not relieved by medication Fever of 101 or higher Excessive bleeding or drainage on dressing Inability to urinate [facility] Mariah Lincoln | Reference #: [id number] Referrals: Gagan Moura MD [Staff Physician] - Disposition: HOME - Home Medications Comprehensive Discharge Medication List: Ambulatory Orders 95/Iron Fum/Folic/Dha [ + Dha Combo Pack] 1 each PO DAILY 07/11 Acetaminophen [Tylenol] 650 mg PO PRN PRN 01/31/19 Famotidine [Pepcid] 20 mg PO BID 01/31/19 [facility] Mariah Lincoln | Reference #: [id number]"
[2019-02-12 08:31] LABS: BASO % 0.3 % (0-2.0); EOS % 1.5 % (0-4.5); HEMATOCRIT 32.6 % (32.4-45.2); MCH 29.4 pg (25.7-33.7); MCHC 33.6 g/dl (32.0-36.0); MEAN CELL VOLUME 87.5 fl (80-96); MEAN PLT VOLUME 8.8 fl (7.5-11.1); MONO % 4.7 % (3.8-10.2); NEUT % 74.5 % (42.8-82.8); PLATELET COUNT 226 K/MM3 (134-434); RBC 3.72 M/mm3 (3.60-5.2); RDW 14.4 % (11.6-15.6); WHITE BLOOD COUNT 9.4 K/mm3 (4.0-10.0)
[2019-02-12] MEDS: ENOXAPARIN NA (PORCINE) 40 MG/0.4 ML DISP.SYRIN SQ SCH (09:46)
[2019-02-12 09:54] VITALS: BP 139/64; PULSE 89; TEMP 98.4
--- NOTE | 2019-02-14 11:27 | PATH ---
Surgical Pathology Report Patient Name: TYRELL LU Med. Rec. #: [id number] /Age/Gender: 1990 (Age: 28) / F Account: [id number] Location: [facility] OBS/PRIMARY HEALTH CARE NURSE Taken: 02/09/2019 Received: 02/10/2019 Reported: 02/14/2019 Physicians: Gagan Moura M.D. Specimen(s) Received PLACENTA Clinical History Pilonidal cyst removal 17 years ago, Elli I malformation, tonsillectomy, adenoidectomy Postoperative diagnosis: Failure to progress, failed induction Primary section Final Diagnosis PLACENTA: THIRD TRIMESTER PLACENTA WITH FOCAL INTRAPARENCHYMAL HEMORRHAGE. TRIVASCULAR CORD. MEMBRANES WITH NO DIAGNOSTIC ABNORMALITIES. Electronically Signed Yumiko Mansfield M.D. Gross Description The specimen is received fresh labeled placenta and is a 528 gram, 20 x 18 x 2.5 cm. placenta with attached membranes and umbilical cord. The attached membranes are clear and translucent and insert marginally. The umbilical cord measures 18 cm. in length and averages 1.5 cm. in diameter. The cord inserts eccentrically, 2 cm. to the nearest margin. No true knots or strictures are identified. Cut surface of the umbilical cord reveals 3 vessels. The surface is rangel-blue with minimal fibrin deposition and appropriate caliber vessels. The maternal surface is red-brown with focal defects. Sectioning reveals a 3 x 2 cm intraparenchymal hemorrhagic lesion. Remainder of the placenta shows red-brown, spongy parenchyma. Trade Manager sections are submitted in 5 cassettes as follows: 1- membrane rolls and umbilical cord; 2-3- full thickness sections of placenta, 4-5- hemorrhagic lesion. MLSZ/02/11/2019 sanml/02/11/2019
== END 2019-02-12 10:00 | disposition home or self-care (01) | DRG 788 ==
LOC: JLDR 17:00 → J3W 02-09 22:20
PROVIDERS: ADMIT Obstetrics & Gynecology; ATTEND Obstetrics & Gynecology
PROC: 10D00Z1 Extraction of Products of Conception, Low, Open Approach (ICD-10-PCS; principal; 2019-02-09)
DX: O48.0 Post-term pregnancy (principal); O62.0 Primary inadequate contractions; O69.81X0 Labor and delivery complicated by cord around neck, without compression, not applicable or unspecified; O99.214 Obesity complicating childbirth; E66.9 Obesity, unspecified; O99.02 Anemia complicating childbirth; D64.9 Anemia, unspecified; Z3A.40 40 weeks gestation of pregnancy; Z37.0 Single live birth
CPT/HCPCS: 36415; 36600; 80048; 82803; 85025; 85610; 85730; 86593; 86850; 86900; 86901; 88307-TC

== ENCOUNTER 2020-06-11 09:05 | Inpatient (IN) | payer OTHER ==
[2020-06-11 09:59] VITALS: BMI 38.2
[2020-06-11] MEDS ORDERED: CITRIC ACID/SODIUM CITRATE 30 ML UNIT-DOSE CUP PO ONE (10:18)
[2020-06-11] MEDS ORDERED: ELECTROLYTE-148 SOLN 1,000 ML IV SCH (10:30)
[2020-06-11] MEDS ORDERED: morphine SULFATE/PF 0.5 MG/ML (2cc Syringe - QUVA) ONE (11:20)
[2020-06-11] MEDS ORDERED: PHENYLEPHRINE HCL 10 MG/1 ML SINGLE DOSE VIAL ONE ×2 (11:20→11:21)
[2020-06-11] MEDS ORDERED: OXYTOCIN 10 UNITS/ML VIAL ONE ×2 (11:21→11:44)
[2020-06-11] MEDS ORDERED: ONDANSETRON 4 MG/2 ML VIAL ONE (11:21)
[2020-06-11] MEDS ORDERED: ePHEDrine SULFATE 50 MG/1 ML AMPULE ONE (11:21)
[2020-06-11] MEDS ORDERED: DEXAMETHASONE SOD PHOSPHATE 4 MG/1 ML VIAL ONE (11:21)
[2020-06-11] MEDS ORDERED: SUCCINYLCHOLINE CHLORIDE 200 MG/10 ML SYRINGE ONE (11:23)
[2020-06-11] MEDS ORDERED: PROPOFOL 20 ML ONE (11:23)
[2020-06-11] MEDS ORDERED: CLINDAMYCIN PHOSPHATE 600 MG/4 ML VIAL ONE (11:24)
[2020-06-11] MEDS ORDERED: OXYTOCIN 20 UNITS in 0.9% NS 20 UNIT/1,000 ML INFUS.BAG IV ONE (11:24)
[2020-06-11] MEDS ORDERED: ONDANSETRON 4 MG/2 ML VIAL IVPUSH PRN (12:51)
[2020-06-11] MEDS ORDERED: morphine SULFATE/PF 0.5 MG/ML (2cc Syringe - QUVA) EP ONE (12:51)
[2020-06-11] MEDS ORDERED: BENZOCAINE 28 GM HEMORRHOIDAL OINTMENT RC PRN (13:33)
[2020-06-11] MEDS ORDERED: IBUPROFEN 800 MG/8 ML IJ IVPB PRN (13:33)
[2020-06-11] MEDS ORDERED: oxyCODONE HCL 5 MG TABLET PO PRN ×2 (13:33)
[2020-06-11] MEDS ORDERED: diphenhydrAMINE HCL 25 MG CAPSULE (FP) PO PRN (13:33)
[2020-06-11] MEDS ORDERED: BENZOCAINE 20% 57 GM BOTTLE TP PRN (13:33)
[2020-06-11] MEDS ORDERED: WITCH HAZEL 50% (TUCKS) 40 PAD/JAR PAD TP PRN (13:33)
[2020-06-11] MEDS ORDERED: METHYLERGONOVINE MALEATE 0.2 MG/1 ML AMP IM PRN (13:33)
[2020-06-11] MEDS ORDERED: OXYTOCIN 20 UNITS in 0.9% NS 20 UNIT/1,000 ML INFUS.BAG IV SCH (13:45)
[2020-06-11] MEDS: CLINDAMYCIN 900 MG PREMIX IVPB 900 MG/50 ML BAG IVPB SCH ×2 (14:35→21:02)
[2020-06-12] MEDS: ACETAMINOPHEN 325 MG TABLET (FP) PO PRN ×4 (00:12→17:44)
[2020-06-12] MEDS: SIMETHICONE 80 MG TAB.CHEW (FP) PO PRN ×4 (00:12→17:44)
[2020-06-12] MEDS: CLINDAMYCIN 900 MG PREMIX IVPB 900 MG/50 ML BAG IVPB SCH (06:14)
[2020-06-12] MEDS: IBUPROFEN 600 MG TABLET (FP) PO PRN ×3 (06:14→17:44)
[2020-06-12 09:18] LABS: BASO % 0.2 % (0-2.0); EOS % 0.8 % (0-4.5); HEMATOCRIT 32.2 % (32.4-45.2); HEMOGLOBIN 10.3 GM/dL (10.7-15.3); LYMPH % 17.6 % (8-40); MCH 27.6 pg (25.7-33.7); MCHC 32.2 g/dl (32.0-36.0); MEAN CELL VOLUME 85.9 fl (80-96); MEAN PLT VOLUME 9.3 fl (7.5-11.1); MONO % 6.4 % (3.8-10.2); PLATELET COUNT 194 K/MM3 (134-434); RBC 3.74 M/mm3 (3.60-5.2); RDW 14.3 % (11.6-15.6); WHITE BLOOD COUNT 12.7 K/mm3 (4.0-10.0)
[2020-06-12] MEDS ORDERED: FAMOTIDINE 20 MG TABLET PO SCH (10:00)
[2020-06-12] MEDS ORDERED: ENOXAPARIN NA (PORCINE) 40 MG/0.4 ML DISP.SYRIN SQ SCH (10:00)
[2020-06-12 13:18] VITALS: BP 105/62; PULSE 84; TEMP 97.9
[2020-06-12] MEDS ORDERED: BISACODYL 10 MG SUPP.RECT PR PRN (13:33)
[2020-06-13 11:48] LABS: POC NITRAZINE NEG
[2020-06-13] MEDS ORDERED: SENNOSIDES/DOCUSATE COMBO (SENNA PLUS) TABLET (UD) PO PRN (22:00)
== END 2020-06-12 18:00 | disposition home or self-care (01) | DRG 788 ==
LOC: JLDR 09:05 → J3W 14:16
PROVIDERS: ADMIT Obstetrics & Gynecology; ATTEND Obstetrics & Gynecology
PROC: 10D00Z1 Extraction of Products of Conception, Low, Open Approach (ICD-10-PCS; principal; 2020-06-11)
DX: O34.211 Maternal care for low transverse scar from previous cesarean delivery (principal); N85.8 Other specified noninflammatory disorders of uterus; O42.92 Full-term premature rupture of membranes, unspecified as to length of time between rupture and onset of labor; O99.02 Anemia complicating childbirth; O99.214 Obesity complicating childbirth; Z3A.38 38 weeks gestation of pregnancy; Z37.0 Single live birth
CPT/HCPCS: 36415; 83986-QW; 85025; 88307-TC